=== PATIENT | male | born 2000 | race Caucasian/White ===

== ENCOUNTER → 2024-11-30 | Outpatient (CLI) | payer OTHER, SELFPAY ==
--- NOTE | 2024-11-30 18:45 | CT_ITS ---
PROCEDURE: SINUS/FACIAL BONE 12/01/2024 REASON FOR EXAM: CHRONIC SINUSITIS TECHNIQUE: SINUS/FACIAL BONE Coronal and Sagittal reconstruction series were provided. One or more dose reduction techniques were used (e.g., Automated exposure control, adjustment of the mA and/or kV according to patient size, use of iterative reconstruction technique). RADIATION DOSE SUMMARY: CTDlvol: mGy DLP: mGycm COMPARISON: none FINDINGS: Mild lamellar mucosal thickening of the left maxillary antrum Clear right maxillary antrum showing internal septum. Hyopneumatized frontal sinus. Clear sphenoid and frontal sinuses as well as ethmoidal air cells. Uncinate Processes: No deviation or bulla formation O-M UNIT: patent. Sphenoethmoidal recesses. Patent Fovea Ethmoidalis: Normal position. Fovea ethmoidalis and cribriform plate are not low lying Nasal Septum: relatively bowed convex to the right side. Turbinates: Thickening of the mucosa covering the inferior turbinates. Nasopharynx: no obvious abnormalities. Mastoid air cells and middle ear clefts: Unremarkable Facial Bones and mandible: Unremarkable. CT/Sinus/Facial Bone IMPRESSION: Minimal left sinusitis. Prominent inferior turbinates. Reading Location: [facility]
== END | disposition home or self-care (01) ==
LOC: CT 18:42
PROVIDERS: Referring Provider Otolaryngology; Visit Provider Otolaryngology
DX: J32.8 Other chronic sinusitis (principal)
CPT/HCPCS: 70486